=== PATIENT | male | born 1990 | race Caucasian/White ===

== ENCOUNTER 2020-08-12 07:46 | Emergency (ER) | payer OTHER, SELFPAY ==
[2020-08-12] VITALS (30 sets, daily range): BP systolic 111–133; BP diastolic 55–73; PULSE 54–78; RESP 8–21; TEMP 36.7–36.9; O2SAT 98–100
[2020-08-12 08:11] LABS: Abs Immature Grans 0.04 10^3/uL (0.0-0.06); Absolute Basophil Count 0.01 10^3/uL (0.0-0.2); Absolute Eosinophil Count 0.04 10^3/uL (0.0-0.7); Absolute Lymphocyte Count 1.37 10^3/uL (1.2-3.4); Absolute Monocyte Count 0.69 10^3/uL (0.1-0.8); Absolute Neutrophil Count 7.78 10^3/uL (1.2-6.7); Basophils % 0.1; Eosinophils % 0.4; HCT 46.7 % (40.0-50.0); HGB 15.4 g/dL (13.5-17.5); Immature Grans % 0.4; Lymphocytes % 13.8; MCH 28.4 pg (27.0-33.0); MPV 10.3 fL (8.0-11.0); Monocytes % 6.9; Neutrophils % 78.4; Nucleated RBC 0 %; Platelet Count 183 10^3/uL (130-400); RBC 5.43 10^6/uL (4.36-5.78); RDW 11.4 % (11.8-14.1); RDW-SD 35.4 fL; WBC 9.93 10^3/uL (4.4-10.8)
[2020-08-12 08:14] LABS: Lactate 1.2 mmol/L (0.6-1.4)
--- NOTE | 2020-08-12 08:15 | DI.CT_ITS ---
EXAM: CT HEAD SINUS WO CLINICAL HISTORY: fever, headache. TECHNIQUE: Imaging Protocol: Axial computed tomography images with coronal and sagittal reformatted images were created and reviewed COMPARISON: No exams were available for comparison FINDINGS: CT Head: Ventricles and Extra axial spaces: Normal in size and morphology for the patient's age. Hemorrhage: None. Cerebral parenchyma: Normal. Midline shift: None. Brainstem/Cerebellum: Normal. Calvarium: Normal. Visualized Paranasal sinuses/Mastoids: There is mild mucosal thickening of a few ethmoid air cells. The remaining visualized paranasal sinuses and mastoid air cells are clear. No air-fluid levels are present. Soft Tissues: Unremarkable. CT Face: Facial Bones: No definite fracture is noted in facial bones. The nasal septum is midline. The ostio meatal complexes are unremarkable. Sinuses and Mastoids: There is mild mucosal thickening of a few ethmoid air cells. The remaining vi sualized paranasal sinuses and mastoid air cells are clear. No air-fluid levels are present. Globes, extraocular muscles, optic nerves and retrobulbar fat: Normal. Upper aerodigestive tract: Normal. Mandible and bilateral temporomandibular joints: Normal. Soft tissues: Normal. IMPRESSION: 1. No acute intracranial process. 2. Minimal ethmoid sinus disease. 3. Findings were discussed with the emergency department on the date of the examination RADIATION DOSE DELIVERED: 972.31mGy.cm Total DLP DATA REPOSITORY: All CT scans at this facility are submitted to the National Radiology Data Registry (NRDR) Dose Index Registry (DIR) with the [employer] ([employer]). RADIATION OPTIMIZATION: All CT scans at this facility use at least one of these dose optimization te chniques: automated exposure control; mA and/or kV adjustment per patient size (includes targeted exa ms where dose is matched to clinical indication); or iterative reconstruction.
--- NOTE | 2020-08-12 08:26 | DI.RAD_ITS ---
EXAM: XR PORTABLE CHEST AP CLINICAL HISTORY: PUI, fever TECHNIQUE: 2D digital imaging was performed. COMPARISON: No exams were available for comparison FINDINGS: MEDIASTINUM: Normal. HEART: Normal. PULMONARY VASCULATURE: Normal. LUNGS: Clear. PLEURAL SPACE: No pleural effusion or pneumothorax. BONE:Within normal limits for the patient's age. OTHER FINDINGS:Normal. IMPRESSION: No acute pulmonary findings. DATA REPOSITORY: RADIATION DOSE DELIVERED:
[2020-08-12 08:28] LABS: ALT 12 U/L (16-63); AST 8 U/L (15-37); Albumin 3.9 g/dL (3.4-5.0); Alkaline Phosphatase 50 U/L (46-116); Anion Gap 9.6 mmol/L (3-11); BUN 18 mg/dL (7-18); Bilirubin, Total 0.7 mg/dL (0.2-1.0); CO2 27.4 mmol/L (21.0-32.0); CREATININE 1.14 mg/dL (0.70-1.30); Calcium 9.5 mg/dL (8.5-10.1); Chloride 98 mmol/L (98-107); Glucose 97 mg/dL (74-106); Magnesium 1.9 mg/dL (1.8-2.4); Potassium 4.2 mmol/L (3.5-5.1); Sodium 135 mmol/L (136-145); Total Protein 8.1 g/dL (6.4-8.2)
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
[2020-08-12 08:44] LABS: C-Reactive Protein 0.23 mg/dL (0.0-0.3)
[2020-08-12] MEDS: Normal Saline 500 ML 1000 ML IV (08:45)
[2020-08-12] MEDS: Ketorolac 15 MG/ML VIAL IVP (08:45)
[2020-08-12] MEDS: Normal Saline 1,000 ML 1000 ML IV (08:45)
[2020-08-12 09:42] LABS: ESR 14 mm/hr (0-15)
[2020-08-12 10:00] LABS: Bilirubin Negative (Negative); Blood Negative (Negative); Clarity Clear (Clear); Glucose Negative (Negative); Ketones Negative (Negative); Leukocyte Esterase Negative (Negative); Nitrite Negative (Negative); Specific Gravity 1.015 (1.005-1.025); Urobilinogen 0.2 EU/dL (Up TO 0.2)
[2020-08-12] MEDS: Acetaminophen 500 MG TAB 1000 MG PO (13:32)
[2020-08-16 22:51] LABS: Patient Race White; SARS-CoV-2 RNA Undetected (Undetected); SARS-CoV-2 Specimen Source Nasopharynx
--- NOTE | 2020-08-17 09:06 | NUR.NOTE ---
Nursing Note: attempted to call COVID results at 0906. VM left.
--- NOTE | 2020-08-17 09:20 | NUR.NOTE ---
Nursing Note: Negative COVID result given over the phone after identity confirmed at 0921.
[2020-08-21 13:18] LABS: Lyme Ab w Rflx to Lyme Confirm Negative (Negative)
[2020-08-21 13:19] LABS: Anaplasma phagocytophilum Negative (Negative); B. miyamotoi PCR Negative (Negative); Babesia divergens/MO-1 Negative (Negative); Babesia duncani Negative (Negative); Babesia microti Negative (Negative); Ehrlichia chaffeensis Negative (Negative); Ehrlichia ewingii/canis Negative (Negative); Ehrlichia muris eauclairensis Negative (Negative)
== END 2020-08-12 13:32 | disposition home or self-care (01) ==
PROVIDERS: Emergency Provider Emergency Medicine; PCP Family Medicine
DX: R50.9 Fever, unspecified (principal); R51.9 Headache, unspecified; M79.10 Myalgia, unspecified site; B34.9 Viral infection, unspecified; Z11.59 Encounter for screening for other viral diseases
CPT/HCPCS: 36415; 80053; 85652; 87040; 87449; 87798; 87880; 96361; 96374; 99284; U0003; 70450; 70486; 71045; 81003; 83605; 83735; 85025; 86140; 86618; 87081; J1885

== ENCOUNTER 2024-08-09 11:53 | Outpatient (REF) | payer BC, SELFPAY ==
[2024-09-10 15:19] LABS: Result Summary See Comments
[2024-09-10 15:27] LABS: Result See Comments
[2024-09-10 15:31] LABS: Specimen Whole Blood
[2024-09-10 15:34] LABS: Interpretation See Comments
[2024-09-10 15:40] LABS: Additional Information See Comments
== END 2024-08-09 11:54 | disposition home or self-care (01) ==
LOC: NCHCN 11:53
PROVIDERS: PCP Family Medicine; Visit Provider Family Medicine
DX: Z13.79 Encounter for other screening for genetic and chromosomal anomalies (principal)
CPT/HCPCS: 81162